=== PATIENT | male | born 1950 | race Two or more races ===

== ENCOUNTER 2025-06-21 10:15 | Inpatient (IN) | payer OTHER ==
[~2025-06-21] VITALS: Ht 177.8 cm; Wt 76.7 kg
[2025-06-21 15:13] VITALS: BP 170/88
[2025-06-29] MEDS ORDERED: METRONIDAZOLE/SODIUM CHLORIDE 500 MG/100 ML PIGGYBACK IV ONE (09:30)
[2025-06-29] MEDS ORDERED: POVIDONE-IODINE 118 ML BOTT TOP ONE (09:30)
[2025-06-29] MEDS ORDERED: LIDOCAINE HCL 2%/EPINEPHRINE 20ML VIAL IJ ONE (09:30)
[2025-06-29] MEDS ORDERED: HEMOSTATIC MATRIX 1 KIT KIT TOP ONE (09:30)
[2025-06-29] MEDS ORDERED: BUPIVACAINE HCL 30 ML VIAL IJ ONE (09:30)
[2025-06-29] MEDS ORDERED: CEFTRIAXONE SODIUM 1,000 MG VIAL IV ONE (09:30)
[2025-06-29] MEDS ORDERED: DIBUCAINE 15 GM OINT..GM. TUBE RECTAL ONE (09:30)
[2025-06-29] MEDS ORDERED: SUGAMMADEX SODIUM 200 MG/2 ML VIAL IV ONE (09:30)
[2025-06-29] MEDS ORDERED: ONDANSETRON HCL 2 MG/ML VIAL IV PRN (10:15)
[2025-06-29] MEDS ORDERED: DEXTROSE 50 % IN WATER 0.5 G/ML VIAL IV PRN (10:15)
[2025-06-29] MEDS ORDERED: OxyCODONE HCL 5 MG TABLET (ROXICODONE) PO PRN (10:15)
[2025-06-29] MEDS ORDERED: RINGERS SOLUTION,LACTATED 1,000 ML IV SCH (10:15)
[2025-06-29] MEDS ORDERED: PIPERACILLIN/TAZOBACTAM SODIUM 3.375 GM in DEXTROSE 5 % IN WATER 100 ML IV SCH (12:00)
[2025-06-29] MEDS ORDERED: MORPHINE SULFATE 4 MG/ML VIAL IV ONE (12:30)
[2025-06-29] MEDS ORDERED: ACETAMINOPHEN 500 MG GEL..CAP PO SCH (14:00)
[2025-06-29 14:29] LABS: BASO % 0.4 % (0.1-1.2); EOS # 0.05 (0.04-0.54); EOS % 0.5 % (0.7-7.0); LYMPH # 1.10 (1.18-3.74); LYMPH % 11.2 % (19.3-53.1); MEAN PLATELET VOLUME 10.90 fl (9.4-12.4); MONO # 0.60 (0.24-0.82); MONO % 6.1 % (4.7-12.5); NEUT # 8.00 (1.56-6.13); NEUT % 81.5 % (34.0-71.1); RED CELL DISTRIBUTION WIDTH 13.3 % (11.6-14.4)
[2025-06-29 15:13] LABS: BUN CREA RATIO 12.0 (7.0-25.0); CREATININE SERUM 0.82 mg/dL (0.70-1.30); GFR 91.84; GLUCOSE FASTING 138.0 mg/dL (65-100); OSMOLALITY SERUM 288.0 MOSM/KG (275-295)
[2025-06-29 16:00] VITALS: BP 113/55; O2SAT 95
[2025-06-29] MEDS ORDERED: GABAPENTIN 300 MG CAPSULE PO SCH (17:00)
[2025-06-29] MEDS ORDERED: FAMOTIDINE/PF 20 MG/2 ML VIAL IV PUSH SCH (21:00)
[2025-06-30 01:40] VITALS: BP 106/61; O2SAT 99
[2025-06-30 08:00] VITALS: BP 127/66; O2SAT 97
[2025-06-30 08:00] LABS: BASO % 0.3 % (0.1-1.2); EOS # 0.01 (0.04-0.54); EOS % 0.1 % (0.7-7.0); LYMPH # 1.27 (1.18-3.74); LYMPH % 11.2 % (19.3-53.1); MEAN PLATELET VOLUME 11.30 fl (9.4-12.4); MONO # 0.66 (0.24-0.82); MONO % 5.8 % (4.7-12.5); NEUT # 9.38 (1.56-6.13); NEUT % 82.2 % (34.0-71.1); RED CELL DISTRIBUTION WIDTH 13.2 % (11.6-14.4)
[2025-06-30 08:02] LABS: BUN CREA RATIO 11.0 (7.0-25.0); CREATININE SERUM 0.93 mg/dL (0.70-1.30); GFR 79.42; GLUCOSE FASTING 121.0 mg/dL (65-100); OSMOLALITY SERUM 283.0 MOSM/KG (275-295)
[2025-06-30] MEDS ORDERED: NOREPINEPHRINE BITARTRATE 4 MG in DEXTROSE 5 % IN WATER 250 ML IV SCH (10:00)
[2025-06-30] MEDS ORDERED: AMINOCAPROIC ACID 250 MG/ML VIAL IV STA (10:07)
[2025-06-30] MEDS ORDERED: 0.9 % SODIUM CHLORIDE 1 ML IV ONE (10:15)
[2025-06-30] MEDS ORDERED: AMINOCAPROIC ACID 250 MG/ML VIAL IV NR (11:00)
[2025-06-30 16:00] VITALS: BP 93/45; O2SAT 96
[2025-06-30] MEDS ORDERED: ENOXAPARIN SODIUM 40 MG/0.4 ML SYRINGE SUBCUTANEO SCH (17:00)
[2025-07-01 01:37] VITALS: BP 113/55; O2SAT 95
[2025-07-01 08:00] VITALS: BP 121/59; O2SAT 95
[2025-07-01] MEDS ORDERED: ENOXAPARIN SODIUM 40 MG/0.4 ML SYRINGE SUBCUTANEO SCH (09:00)
[2025-07-01 10:06] LABS: BASO % 0.2 % (0.1-1.2); EOS # 0.00 (0.04-0.54); EOS % 0.0 % (0.7-7.0); LYMPH # 0.85 (1.18-3.74); LYMPH % 9.0 % (19.3-53.1); MEAN PLATELET VOLUME 11.50 fl (9.4-12.4); MONO # 0.56 (0.24-0.82); MONO % 6.0 % (4.7-12.5); NEUT # 7.93 (1.56-6.13); NEUT % 84.3 % (34.0-71.1); RED CELL DISTRIBUTION WIDTH 14.9 % (11.6-14.4)
[2025-07-01] MEDS ORDERED: AMINOCAPROIC ACID 250 MG/ML VIAL IV SCH (12:00)
[2025-07-01 16:00] VITALS: BP 136/60; O2SAT 99
[2025-07-01] MEDS ORDERED: SOD FERRIC GLUC COMPLX/SUCROSE 62.5 MG in 0.9 % SODIUM CHLORIDE 50 ML IV SCH (17:00)
[2025-07-01 18:14] VITALS: O2SAT 96
[2025-07-01 21:44] VITALS: O2SAT 97
[2025-07-02] VITALS (9 sets, daily range): BP systolic 122–155; BP diastolic 58–85; O2SAT 90–98
[2025-07-02 11:03] LABS: BASO % 0.2 % (0.1-1.2); EOS # 0.01 (0.04-0.54); EOS % 0.1 % (0.7-7.0); LYMPH # 1.11 (1.18-3.74); LYMPH % 13.1 % (19.3-53.1); MEAN PLATELET VOLUME 11.40 fl (9.4-12.4); MONO # 0.57 (0.24-0.82); MONO % 6.7 % (4.7-12.5); NEUT # 6.73 (1.56-6.13); NEUT % 79.2 % (34.0-71.1); RED CELL DISTRIBUTION WIDTH 14.9 % (11.6-14.4)
[2025-07-03] VITALS (8 sets, daily range): BP systolic 137–181; BP diastolic 70–82; O2SAT 90–98
[2025-07-03 06:58] LABS: BASO % 0.4 % (0.1-1.2); EOS # 0.04 (0.04-0.54); EOS % 0.5 % (0.7-7.0); LYMPH # 1.73 (1.18-3.74); LYMPH % 23.3 % (19.3-53.1); MEAN PLATELET VOLUME 11.80 fl (9.4-12.4); MONO # 0.67 (0.24-0.82); MONO % 9.0 % (4.7-12.5); NEUT # 4.92 (1.56-6.13); NEUT % 66.4 % (34.0-71.1); RED CELL DISTRIBUTION WIDTH 14.7 % (11.6-14.4)
[2025-07-03] MEDS ORDERED: TYLENOL ARTHRI650 MG PO (15:07)
[2025-07-03] MEDS ORDERED: AMOX1TAB5 PO (15:07)
[2025-07-03] MEDS ORDERED: NEURONTIN300 MG PO (15:07)
== END 2025-07-03 16:30 | DRG 333 ==
LOC: SURH 06-29 05:14 → O/R 06-29 05:14 → SURH 06-29 10:15
PROVIDERS: ADMIT Surgery; ATTEND Surgery
PROC: 0DBP4ZZ Excision of Rectum, Percutaneous Endoscopic Approach (ICD-10-PCS; principal; 2025-06-29 10:15)
PROC: 30233N1 Transfusion of Nonautologous Red Blood Cells into Peripheral Vein, Percutaneous Approach (ICD-10-PCS; 2025-06-30)
PROC: 4A12X4Z Monitoring of Cardiac Electrical Activity, External Approach (ICD-10-PCS; 2025-07-01)
DX: C20 Malignant neoplasm of rectum (principal); K62.5 Hemorrhage of anus and rectum; D37.5 Neoplasm of uncertain behavior of rectum; D64.9 Anemia, unspecified

== ENCOUNTER 2025-07-04 05:01 | Inpatient (IN) | payer OTHER ==
[~2025-07-04] VITALS: Ht 152.4 cm; Wt 76.7 kg
[~2025-07-04 05:01] MED LIST: AMOX1TAB5 PO; NEURONTIN300 MG PO; TYLENOL ARTHRI650 MG PO
[2025-07-04] MEDS ORDERED: RINGERS SOLUTION,LACTATED 1,000 ML IV ONE (05:30)
[2025-07-04] MEDS ORDERED: PIPERACILLIN/TAZOBACTAM SODIUM 3.375 GM VIAL IV STA (05:39)
[2025-07-04 06:49] LABS: BASO % 0.2 % (0.1-1.2); EOS # 0.05 (0.04-0.54); EOS % 0.5 % (0.7-7.0); LYMPH # 1.51 (1.18-3.74); LYMPH % 13.8 % (19.3-53.1); MEAN PLATELET VOLUME 11.90 fl (9.4-12.4); MONO # 0.83 (0.24-0.82); MONO % 7.6 % (4.7-12.5); NEUT # 8.43 (1.56-6.13); NEUT % 76.7 % (34.0-71.1); RED CELL DISTRIBUTION WIDTH 14.3 % (11.6-14.4)
[2025-07-04 07:13] LABS: INR 1.05
[2025-07-04] MEDS ORDERED: MORPHINE SULFATE 4 MG/ML VIAL IV PRN (07:15)
[2025-07-04 07:20] LABS: ALT/SGPT 18.0 U/L (12-78); AST/SGOT 21.0 U/L (15-37); BILIRUBIN TOTAL 0.6 mg/dL (0.3-1.2); BUN CREA RATIO 8.0 (7.0-25.0); CREATININE SERUM 0.83 mg/dL (0.70-1.30); GFR 90.57; GLOBULINA 3.0 G/DL (2.4-3.5); GLUCOSE FASTING 190.0 mg/dL (65-100); OSMOLALITY SERUM 290.0 MOSM/KG (275-295)
[2025-07-04] MEDS ORDERED: POTASSIUM CHLORIDE IN WATER 40 MEQ/100 ML PIGGYBAG IV ONE (07:45)
[2025-07-04 08:04] VITALS: BP 136/55; O2SAT 97
[2025-07-04 08:27] LABS: BUN CREA RATIO 10.0 (7.0-25.0); CREATININE SERUM 0.7 mg/dL (0.70-1.30); GFR 110.24; GLUCOSE FASTING 145.0 mg/dL (65-100); OSMOLALITY SERUM 291.0 MOSM/KG (275-295)
[2025-07-04] MEDS ORDERED: FAMOTIDINE/PF 20 MG/2 ML VIAL IV SCH (09:00)
[2025-07-04 09:55] LABS: COVID-19 AG NEGATIVE (NEGATIVE)
[2025-07-04 10:13] LABS: URINE APPEARANCE Clear; URINE BILIRRUBIN Negative (NEGATIVE); URINE BLOOD Moderate; URINE COLOR Yellow; URINE GLUCOSE Negative (NEGATIVE); URINE LEUKOCYTE Trace; URINE NITRATE Negative; URINE PROTEIN Negative (NEGATIVE); URINE UROBILINOGEN 0.2 E.U./dl
[2025-07-04 10:17] LABS: URINE BACTERIA 27.5 uL (0.0-1933); URINE CAST 4.54 uL (0.0-1.40); URINE EPITHELIAL CELLS 14.9 uL (0.0-38.8); URINE RBC 63.2 uL (0.0-20.8); URINE WBC 63.9 uL (0.0-23.2)
[2025-07-04 10:53] LABS: TYPE CELLS SQUAMOUS; URINE KETONE 40 (NEGATIVE); URINE MUCUS SCANT
[2025-07-04 11:17] VITALS: BP 143/69; O2SAT 100
[2025-07-04 13:50] VITALS: BP 167/74; O2SAT 97
[2025-07-04 16:00] VITALS: BP 170/80; O2SAT 95
[2025-07-04 19:25] LABS: BASO % 0.2 % (0.1-1.2); EOS # 0.02 (0.04-0.54); EOS % 0.2 % (0.7-7.0); LYMPH # 1.58 (1.18-3.74); LYMPH % 19.5 % (19.3-53.1); MEAN PLATELET VOLUME 11.70 fl (9.4-12.4); MONO # 0.79 (0.24-0.82); MONO % 9.8 % (4.7-12.5); NEUT # 5.60 (1.56-6.13); NEUT % 69.3 % (34.0-71.1); RED CELL DISTRIBUTION WIDTH 14.7 % (11.6-14.4)
[2025-07-04] MEDS ORDERED: ONDANSETRON HCL 2 MG/ML VIAL IV PRN (19:30)
[2025-07-04] MEDS ORDERED: RINGERS SOLUTION,LACTATED 1,000 ML IV SCH (19:30)
[2025-07-04] MEDS ORDERED: MORPHINE SULFATE 4 MG/ML CARTRIDGE IV PRN ×2 (19:30)
[2025-07-04] MEDS ORDERED: DEXTROSE 50 % IN WATER 0.5 G/ML VIAL IV PRN (19:30)
[2025-07-04] MEDS ORDERED: SIMETHICONE 125 MG CAPSULE PO SCH (21:00)
[2025-07-04] MEDS ORDERED: FAMOTIDINE/PF 20 MG/2 ML VIAL IV PUSH SCH (21:00)
[2025-07-04] MEDS ORDERED: METRONIDAZOLE/SODIUM CHLORIDE 500 MG/100 ML PIGGYBACK IV SCH (21:00)
[2025-07-04] MEDS ORDERED: GABAPENTIN 300 MG CAPSULE PO SCH (21:00)
[2025-07-04] MEDS ORDERED: CIPROFLOXACIN IN 5 % DEXTROSE 400 MG/200 ML PIGGYBAG IV SCH (21:00)
[2025-07-04] MEDS ORDERED: POVIDONE-IODINE 118 ML BOTT TOP ONE (22:30)
[2025-07-04] MEDS ORDERED: METRONIDAZOLE/SODIUM CHLORIDE 500 MG/100 ML PIGGYBACK IV ONE (22:30)
[2025-07-05 06:10] LABS: BASO % 0.3 % (0.1-1.2); EOS # 0.14 (0.04-0.54); EOS % 1.6 % (0.7-7.0); LYMPH # 1.68 (1.18-3.74); LYMPH % 19.0 % (19.3-53.1); MEAN PLATELET VOLUME 11.30 fl (9.4-12.4); MONO # 1.00 (0.24-0.82); MONO % 11.3 % (4.7-12.5); NEUT # 5.89 (1.56-6.13); NEUT % 66.4 % (34.0-71.1); RED CELL DISTRIBUTION WIDTH 14.9 % (11.6-14.4)
[2025-07-05 06:59] LABS: BUN CREA RATIO 7.0 (7.0-25.0); CREATININE SERUM 0.57 mg/dL (0.70-1.30); GFR 139.73; GLUCOSE FASTING 87.0 mg/dL (65-100); OSMOLALITY SERUM 285.0 MOSM/KG (275-295)
[2025-07-05 08:00] VITALS: BP 156/72; O2SAT 95
[2025-07-05] MEDS ORDERED: LACTOBACILLUS ACIDOPHILUS 1 CAP CAP PO SCH (09:00)
[2025-07-05] MEDS ORDERED: TAMSULOSIN HCL 0.4 MG CAP PO NR (11:00)
[2025-07-05 16:00] VITALS: BP 150/62; O2SAT 97
[2025-07-05] MEDS ORDERED: SUGAMMADEX SODIUM 200 MG/2 ML VIAL IV ONE (21:15)
[2025-07-06 01:20] VITALS: BP 148/64; O2SAT 97
[2025-07-06 06:45] LABS: BASO % 0.5 % (0.1-1.2); EOS # 0.32 (0.04-0.54); EOS % 4.3 % (0.7-7.0); LYMPH # 1.96 (1.18-3.74); LYMPH % 26.6 % (19.3-53.1); MEAN PLATELET VOLUME 10.90 fl (9.4-12.4); MONO # 0.86 (0.24-0.82); MONO % 11.7 % (4.7-12.5); NEUT # 4.07 (1.56-6.13); NEUT % 55.3 % (34.0-71.1); RED CELL DISTRIBUTION WIDTH 15.2 % (11.6-14.4)
[2025-07-06 07:02] LABS: BUN CREA RATIO 6.0 (7.0-25.0); CREATININE SERUM 0.67 mg/dL (0.70-1.30); GFR 115.95; GLUCOSE FASTING 95.0 mg/dL (65-100); OSMOLALITY SERUM 289.0 MOSM/KG (275-295)
[2025-07-06 08:00] VITALS: BP 168/76; O2SAT 97
[2025-07-06] MEDS ORDERED: TAMSULOSIN HCL 0.4 MG CAP PO SCH (09:00)
[2025-07-06] MEDS ORDERED: SOD FERRIC GLUC COMPLX/SUCROSE 62.5 MG in 0.9 % SODIUM CHLORIDE 50 ML IV SCH (12:24)
[2025-07-06 17:25] VITALS: BP 130/65; O2SAT 94
[2025-07-07 01:48] VITALS: BP 113/58; O2SAT 96
[2025-07-07 07:20] LABS: BASO % 0.3 % (0.1-1.2); EOS # 0.11 (0.04-0.54); EOS % 1.2 % (0.7-7.0); LYMPH # 1.78 (1.18-3.74); LYMPH % 19.0 % (19.3-53.1); MEAN PLATELET VOLUME 11.00 fl (9.4-12.4); MONO # 0.84 (0.24-0.82); MONO % 9.0 % (4.7-12.5); NEUT # 6.50 (1.56-6.13); NEUT % 69.3 % (34.0-71.1); RED CELL DISTRIBUTION WIDTH 15.6 % (11.6-14.4)
[2025-07-07] MEDS ORDERED: AMINOCAPROIC ACID 250 MG/ML VIAL IV STA ×2 (07:45→10:05)
[2025-07-07 07:56] LABS: BUN CREA RATIO 7.0 (7.0-25.0); CREATININE SERUM 0.68 mg/dL (0.70-1.30); GFR 113.99; GLUCOSE FASTING 104.0 mg/dL (65-100); OSMOLALITY SERUM 288.0 MOSM/KG (275-295)
[2025-07-07 08:00] VITALS: BP 145/71; O2SAT 94
[2025-07-07] MEDS ORDERED: GABAPENTIN 300 MG CAPSULE PO PRN (14:05)
[2025-07-07 16:00] VITALS: BP 140/71; O2SAT 97
[2025-07-07] MEDS ORDERED: AMINOCAPROIC ACID 20 MG/ML ML IV SCH (17:00)
[2025-07-07 20:21] LABS: BASO % 0.4 % (0.1-1.2); EOS # 0.16 (0.04-0.54); EOS % 2.1 % (0.7-7.0); LYMPH # 1.74 (1.18-3.74); LYMPH % 22.8 % (19.3-53.1); MEAN PLATELET VOLUME 11.10 fl (9.4-12.4); MONO # 0.68 (0.24-0.82); MONO % 8.9 % (4.7-12.5); NEUT # 4.97 (1.56-6.13); NEUT % 65.1 % (34.0-71.1); RED CELL DISTRIBUTION WIDTH 16.8 % (11.6-14.4)
[2025-07-07 21:10] LABS: INR 1.06
[2025-07-08 01:45] VITALS: BP 141/69; O2SAT 97
[2025-07-08 08:00] VITALS: BP 144/85; O2SAT 96
[2025-07-08 16:00] VITALS: BP 160/81; O2SAT 98
[2025-07-09 01:10] VITALS: BP 146/79; O2SAT 96
[2025-07-09 08:20] VITALS: BP 151/63; O2SAT 97
[2025-07-09 15:24] LABS: BASO % 0.2 % (0.1-1.2); EOS # 0.05 (0.04-0.54); EOS % 0.6 % (0.7-7.0); LYMPH # 1.41 (1.18-3.74); LYMPH % 15.7 % (19.3-53.1); MEAN PLATELET VOLUME 10.90 fl (9.4-12.4); MONO # 0.68 (0.24-0.82); MONO % 7.6 % (4.7-12.5); NEUT # 6.76 (1.56-6.13); NEUT % 75.2 % (34.0-71.1); RED CELL DISTRIBUTION WIDTH 17.0 % (11.6-14.4)
[2025-07-09 16:30] VITALS: BP 108/75; BP 155/78; O2SAT 100; O2SAT 98
[2025-07-09 16:33] LABS: D DIMER 1.06 MG/L; INR 1.03
[2025-07-09 16:47] LABS: ALT/SGPT 21.0 U/L (12-78); AST/SGOT 20.0 U/L (15-37); BILIRUBIN TOTAL 0.3 mg/dL (0.3-1.2); BUN CREA RATIO 4.0 (7.0-25.0); CREATININE SERUM 0.76 mg/dL (0.70-1.30); GFR 100.26; GLOBULINA 2.6 G/DL (2.4-3.5); GLUCOSE FASTING 166.0 mg/dL (65-100); OSMOLALITY SERUM 285.0 MOSM/KG (275-295)
[2025-07-09] MEDS ORDERED: AMINOCAPROIC ACID 250 MG/ML VIAL IV STA (20:10)
[2025-07-09] MEDS ORDERED: POTASSIUM CHLORIDE IN WATER 100 ML IV ONE (20:30)
[2025-07-09] MEDS ORDERED: 0.9 % SODIUM CHLORIDE 1,000 ML IV SCH (20:45)
[2025-07-09 22:41] VITALS: BP 105/75; O2SAT 98
[2025-07-09 23:10] VITALS: BP 97/71; O2SAT 99
[2025-07-10] MEDS ORDERED: GABAPENTIN 300 MG CAPSULE PO STA (00:34)
[2025-07-10] MEDS ORDERED: ACETAMINOPHEN 500 MG GEL..CAP PO STA (00:35)
[2025-07-10] MEDS ORDERED: AMINOCAPROIC ACID 250 MG/ML VIAL IV SCH (02:00)
[2025-07-10 03:58] VITALS: BP 120/75; O2SAT 99
[2025-07-10 07:37] VITALS: BP 116/70; O2SAT 97
[2025-07-10] MEDS ORDERED: ACETAMINOPHEN 500 MG GEL..CAP PO SCH (09:00)
[2025-07-10] MEDS ORDERED: GABAPENTIN 300 MG CAPSULE PO SCH (09:00)
[2025-07-10 10:47] LABS: FOLIC ACID > 20.00 ng/ml (4.78-20)
[2025-07-10 12:00] VITALS: BP 122/68; O2SAT 100
[2025-07-10 15:51] VITALS: BP 137/85; O2SAT 100
[2025-07-10 16:53] LABS: BASO % 0.4 % (0.1-1.2); EOS # 0.08 (0.04-0.54); EOS % 0.7 % (0.7-7.0); LYMPH # 1.07 (1.18-3.74); LYMPH % 9.7 % (19.3-53.1); MEAN PLATELET VOLUME 10.40 fl (9.4-12.4); MONO # 0.67 (0.24-0.82); MONO % 6.1 % (4.7-12.5); NEUT # 9.09 (1.56-6.13); NEUT % 82.6 % (34.0-71.1); RED CELL DISTRIBUTION WIDTH 17.4 % (11.6-14.4)
[2025-07-10] MEDS ORDERED: AA 5 %/CALCIUM/LYTES/DEXT 20 % 2,000 ML CENTRAL SCH (17:00)
[2025-07-10 17:40] LABS: BUN CREA RATIO 10.0 (7.0-25.0); CHOL HDL RATIO 3.4 (0-5.0); CREATININE SERUM 0.72 mg/dL (0.70-1.30); GFR 106.71; GLUCOSE FASTING 97.0 mg/dL (65-100); HDL 31.0 mg/dl (40-60); LDL 61.0 mg/dl (0-130); OSMOLALITY SERUM 285.0 MOSM/KG (275-295); VLDL 14.0 (0-39)
[2025-07-10] MEDS ORDERED: VISTASEAL DUAL APPICATOR 1 EACH APPL TOP ONE (18:24)
[2025-07-10] MEDS ORDERED: THROMBIN,HU/FIBRINOGEN/CALCIUM 10 ML SYRINGE TOP ONE (18:25)
[2025-07-10] MEDS ORDERED: HEMOSTATIC MATRIX 1 KIT KIT TOP ONE (19:03)
[2025-07-10] MEDS ORDERED: PHYTONADIONE 10 MG/ML AMPUL ONE (19:21)
[2025-07-10] MEDS ORDERED: PHYTONADIONE 10 MG/ML AMPUL IV STA (19:22)
[2025-07-10 20:30] VITALS: BP 134/79; O2SAT 100
[2025-07-10] MEDS ORDERED: PANTOPRAZOLE SODIUM 40 MG/VIAL VIAL IV SCH (21:00)
[2025-07-10] MEDS ORDERED: FAT EMULSIONS 250 ML IV SCH (21:00)
[2025-07-11 00:15] VITALS: BP 119/63; O2SAT 100
[2025-07-11 07:00] VITALS: BP 133/73; O2SAT 96
[2025-07-11] MEDS ORDERED: PIPERACILLIN/TAZOBACTAM SODIUM 3.375 GM in DEXTROSE 5 % IN WATER 100 ML IV SCH ×3 (08:00→14:00)
[2025-07-11] MEDS ORDERED: PIPERACILLIN/TAZOBACTAM SODIUM 3.375 GM in DEXTROSE 5 % IN WATER 100 ML IV NR (09:25)
[2025-07-11 12:00] VITALS: BP 168/88; BP 169/88; O2SAT 97; O2SAT 98
[2025-07-11 15:49] VITALS: BP 171/79; O2SAT 97
[2025-07-11 20:00] VITALS: BP 171/79; O2SAT 97
[2025-07-11 23:41] VITALS: BP 162/73; O2SAT 97
[2025-07-12 04:00] VITALS: BP 163/85; O2SAT 95
[2025-07-12 07:02] LABS: BASO % 0.3 % (0.1-1.2); EOS # 0.29 (0.04-0.54); EOS % 4.3 % (0.7-7.0); LYMPH # 0.98 (1.18-3.74); LYMPH % 14.6 % (19.3-53.1); MEAN PLATELET VOLUME 10.90 fl (9.4-12.4); MONO # 0.60 (0.24-0.82); MONO % 9.0 % (4.7-12.5); NEUT # 4.77 (1.56-6.13); NEUT % 71.2 % (34.0-71.1); RED CELL DISTRIBUTION WIDTH 17.4 % (11.6-14.4)
[2025-07-12 07:22] VITALS: BP 160/91; O2SAT 97
[2025-07-12 07:33] LABS: ALT/SGPT 17.0 U/L (12-78); AST/SGOT 15.0 U/L (15-37); BILIRUBIN TOTAL 0.23 mg/dL (0.3-1.2); BUN CREA RATIO 12.0 (7.0-25.0); CREATININE SERUM 0.74 mg/dL (0.70-1.30); GFR 103.39; GLOBULINA 3.0 G/DL (2.4-3.5); GLUCOSE FASTING 102.0 mg/dL (65-100); OSMOLALITY SERUM 288.0 MOSM/KG (275-295)
[2025-07-12 07:47] LABS: EOSINOPHIL MAN 3.0 %; LYMPHOCYTE MAN 16.0 %; MONOCYTE MAN 2.0 %; NEUTROPHILS MAN 79.0 %
[2025-07-12 12:00] VITALS: BP 162/83; O2SAT 98
[2025-07-12 15:52] VITALS: BP 175/75; O2SAT 99
[2025-07-12 20:00] VITALS: BP 166/83; O2SAT 97
[2025-07-12 23:49] VITALS: BP 173/86; O2SAT 97
[2025-07-13] VITALS (18 sets, daily range): BP systolic 71–158; BP diastolic 34–98; O2SAT 80–100
[2025-07-13 01:24] LABS: BASO % 0.3 % (0.1-1.2); EOS # 0.31 (0.04-0.54); EOS % 4.4 % (0.7-7.0); LYMPH # 1.25 (1.18-3.74); LYMPH % 17.8 % (19.3-53.1); MEAN PLATELET VOLUME 10.50 fl (9.4-12.4); MONO # 0.69 (0.24-0.82); MONO % 9.8 % (4.7-12.5); NEUT # 4.70 (1.56-6.13); NEUT % 67.1 % (34.0-71.1); RED CELL DISTRIBUTION WIDTH 16.9 % (11.6-14.4)
[2025-07-13] MEDS ORDERED: AMINOCAPROIC ACID 250 MG/ML VIAL IV STA (01:54)
[2025-07-13] MEDS ORDERED: NOREPINEPHRINE BITARTRATE 8 MG in DEXTROSE 5 % IN WATER 250 ML IV SCH (03:30)
[2025-07-13] MEDS ORDERED: THROMBIN,HU/FIBRINOGEN/CALCIUM 10 ML SYRINGE TOP ONE (06:00)
[2025-07-13] MEDS ORDERED: POVIDONE-IODINE 118 ML BOTT TOP ONE (06:00)
[2025-07-13 09:08] LABS: FACTOR VIII ACTIVITY 35 % (56-140); VON WILLERBRAND ACTIVITY > 300 % (50-200); VON WILLERBRAND ANTIGEN 352 % (50-200)
[2025-07-13] MEDS ORDERED: MORPHINE SULFATE 4 MG/ML CARTRIDGE IV PRN (11:45)
[2025-07-13 16:25] LABS: BASO % 0.4 % (0.1-1.2); EOS # 0.17 (0.04-0.54); EOS % 2.1 % (0.7-7.0); LYMPH # 1.18 (1.18-3.74); LYMPH % 14.7 % (19.3-53.1); MEAN PLATELET VOLUME 10.60 fl (9.4-12.4); MONO # 0.77 (0.24-0.82); MONO % 9.6 % (4.7-12.5); NEUT # 5.84 (1.56-6.13); NEUT % 72.5 % (34.0-71.1); RED CELL DISTRIBUTION WIDTH 16.5 % (11.6-14.4)
[2025-07-13 17:00] LABS: INR 1.07
[2025-07-14 03:58] VITALS: BP 157/80; O2SAT 96
[2025-07-14 07:13] VITALS: BP 157/79; O2SAT 100
[2025-07-14 12:00] VITALS: BP 169/8; O2SAT 100
[2025-07-14 15:38] VITALS: BP 154/65; O2SAT 100
[2025-07-14] MEDS ORDERED: [UNRECOGNIZED DRUG - OTHER] IV NR (17:00)
[2025-07-14 18:25] LABS: BASO % 0.4 % (0.1-1.2); EOS # 0.33 (0.04-0.54); EOS % 4.9 % (0.7-7.0); LYMPH # 0.94 (1.18-3.74); LYMPH % 14.0 % (19.3-53.1); MEAN PLATELET VOLUME 10.80 fl (9.4-12.4); MONO # 0.71 (0.24-0.82); MONO % 10.6 % (4.7-12.5); NEUT # 4.67 (1.56-6.13); NEUT % 69.7 % (34.0-71.1); RED CELL DISTRIBUTION WIDTH 15.7 % (11.6-14.4)
[2025-07-14 20:51] VITALS: BP 154/75; O2SAT 100
[2025-07-14 23:37] VITALS: BP 142/73; O2SAT 97
[2025-07-15 04:00] VITALS: BP 135/56; O2SAT 100
[2025-07-15 07:19] VITALS: BP 158/77; O2SAT 96
[2025-07-15] MEDS ORDERED: POVIDONE-IODINE 118 ML BOTT TOP ONE (09:03)
[2025-07-15] MEDS ORDERED: HEMOSTATIC MATRIX 1 KIT KIT TOP ONE (09:03)
[2025-07-15] MEDS ORDERED: [UNRECOGNIZED DRUG - OTHER] IV NR ×2 (09:15→16:00)
[2025-07-15] MEDS ORDERED: ANTIHEMOPHILIC FACTOR IV NR ×2 (09:15→16:00)
[2025-07-15] MEDS ORDERED: DIATRIZOATE MEGLUMINE, SODIUM 30 ML BOTTLE PO NR (11:15)
[2025-07-15 11:57] VITALS: BP 169/94; O2SAT 100
[2025-07-15 15:29] VITALS: BP 149/92; O2SAT 99
[2025-07-15 20:42] VITALS: BP 160/73; O2SAT 100
[2025-07-15 23:00] VITALS: BP 142/77; O2SAT 100
[2025-07-16 03:22] LABS: BASO % 0.5 % (0.1-1.2); EOS # 0.40 (0.04-0.54); EOS % 7.2 % (0.7-7.0); LYMPH # 1.13 (1.18-3.74); LYMPH % 20.3 % (19.3-53.1); MEAN PLATELET VOLUME 10.90 fl (9.4-12.4); MONO # 0.75 (0.24-0.82); MONO % 13.4 % (4.7-12.5); NEUT # 3.22 (1.56-6.13); NEUT % 57.7 % (34.0-71.1); RED CELL DISTRIBUTION WIDTH 15.1 % (11.6-14.4)
[2025-07-16 04:00] LABS: INR 1.06
[2025-07-16 04:07] VITALS: BP 155/69; O2SAT 97
[2025-07-16 07:07] VITALS: BP 140/72; O2SAT 99
[2025-07-16 07:49] LABS: ALT/SGPT 32 U/L (12-78); AST/SGOT 33 U/L (15-37); BILIRUBIN TOTAL 0.30 mg/dL (0.3-1.2); BILIRUBIN,CONJUGATED < 0.10 mg/dL (0.0-0.2); BUN CREA RATIO 22 (7.0-25.0); CHOL HDL RATIO 3.5 (0-5.0); CREATININE SERUM 0.63 mg/dL (0.70-1.30); GFR 124.49; GLUCOSE FASTING 163 mg/dL (65-100); HDL 32 mg/dl (40-60); LDL 64 mg/dl (0-130); OSMOLALITY SERUM 285 MOSM/KG (275-295); VLDL 16 (0-39)
[2025-07-16 08:25] LABS: UREA CLEARANCE 52.4 ML/MIN
[2025-07-16] MEDS ORDERED: [UNRECOGNIZED DRUG - OTHER] IV NR ×2 (08:25→09:50)
[2025-07-16 12:00] VITALS: BP 106/61; O2SAT 100
[2025-07-16 15:19] VITALS: BP 96/57; O2SAT 100
[2025-07-16 15:22] LABS: BASO % 0.7 % (0.1-1.2); EOS # 0.13 (0.04-0.54); EOS % 1.9 % (0.7-7.0); LYMPH # 0.87 (1.18-3.74); LYMPH % 12.4 % (19.3-53.1); MEAN PLATELET VOLUME 10.80 fl (9.4-12.4); MONO # 0.66 (0.24-0.82); MONO % 9.4 % (4.7-12.5); NEUT # 5.19 (1.56-6.13); NEUT % 73.9 % (34.0-71.1); RED CELL DISTRIBUTION WIDTH 15.3 % (11.6-14.4)
[2025-07-16] MEDS ORDERED: [UNRECOGNIZED DRUG - OTHER] IV NR (20:00)
[2025-07-16] MEDS ORDERED: [UNRECOGNIZED DRUG - OTHER] IV NR (20:00)
[2025-07-16 21:15] VITALS: BP 110/50; O2SAT 99
[2025-07-16 23:29] VITALS: BP 107/59; O2SAT 99
[2025-07-17 01:09] LABS: BASO % 0.5 % (0.1-1.2); EOS # 0.33 (0.04-0.54); EOS % 5.6 % (0.7-7.0); LYMPH # 1.29 (1.18-3.74); LYMPH % 21.9 % (19.3-53.1); MEAN PLATELET VOLUME 11.00 fl (9.4-12.4); MONO # 0.82 (0.24-0.82); NEUT # 3.33 (1.56-6.13); NEUT % 56.4 % (34.0-71.1); RED CELL DISTRIBUTION WIDTH 15.1 % (11.6-14.4)
[2025-07-17 01:14] LABS: MONO % 13.9 % (4.7-12.5)
[2025-07-17 04:00] VITALS: BP 116/53; O2SAT 98
[2025-07-17 07:32] VITALS: BP 114/67; O2SAT 99
[2025-07-17] MEDS ORDERED: [UNRECOGNIZED DRUG - OTHER] IV NR (08:00)
[2025-07-17] MEDS ORDERED: [UNRECOGNIZED DRUG - OTHER] IV NR (08:00)
[2025-07-17] MEDS ORDERED: AMINOCAPROIC ACID 250 MG/ML VIAL IV NR (09:00)
[2025-07-17] MEDS ORDERED: AMINOCAPROIC ACID 20 MG/ML ML IV SCH (10:00)
[2025-07-17 12:00] VITALS: BP 120/60; O2SAT 100
[2025-07-17 14:22] LABS: BASO % 0.7 % (0.1-1.2); EOS # 0.41 (0.04-0.54); EOS % 7.2 % (0.7-7.0); LYMPH # 1.17 (1.18-3.74); LYMPH % 20.7 % (19.3-53.1); MEAN PLATELET VOLUME 10.90 fl (9.4-12.4); MONO # 0.71 (0.24-0.82); NEUT # 3.26 (1.56-6.13); NEUT % 57.7 % (34.0-71.1); RED CELL DISTRIBUTION WIDTH 14.9 % (11.6-14.4)
[2025-07-17 15:43] LABS: MONO % 12.5 % (4.7-12.5)
[2025-07-17 16:00] VITALS: BP 108/59; O2SAT 100
[2025-07-17 16:24] LABS: BAND MAN 4.0 %; EOSINOPHIL MAN 5.0 %; LYMPHOCYTE MAN 19.0 %; METAMYELOCYTE 5.0 %; MONOCYTE MAN 8.0 %; MYELOCYTE 4.0 %; NEUTROPHILS MAN 55.0 %
[2025-07-17] MEDS ORDERED: FUERA DE FORMULARIO 1 U FF IV SCH ×3 (18:00→23:45)
[2025-07-17 20:00] VITALS: BP 119/61; O2SAT 99
[2025-07-17 20:49] LABS: BASO % 0.4 % (0.1-1.2); EOS # 0.39 (0.04-0.54); EOS % 5.5 % (0.7-7.0); LYMPH # 1.04 (1.18-3.74); LYMPH % 14.6 % (19.3-53.1); MEAN PLATELET VOLUME 11.00 fl (9.4-12.4); MONO # 0.85 (0.24-0.82); MONO % 12.0 % (4.7-12.5); NEUT # 4.72 (1.56-6.13); NEUT % 66.4 % (34.0-71.1); RED CELL DISTRIBUTION WIDTH 14.8 % (11.6-14.4)
[2025-07-17] MEDS ORDERED: FUERA DE FORMULARIO 1 U FF IV NR (21:30)
[2025-07-17 23:22] VITALS: BP 118/66; O2SAT 100
[2025-07-18 04:17] VITALS: BP 106/72; O2SAT 100
[2025-07-18 07:06] VITALS: BP 105/58; O2SAT 100
[2025-07-18] MEDS ORDERED: FUERA DE FORMULARIO 1 U FF IV NR ×2 (08:00→14:00)
[2025-07-18 12:00] VITALS: BP 140/63; O2SAT 100
[2025-07-18] MEDS ORDERED: AMINOCAPROIC ACID 20 MG/ML ML IV SCH (12:00)
[2025-07-18 12:45] LABS: BASO % 0.6 % (0.1-1.2); EOS # 0.55 (0.04-0.54); EOS % 6.7 % (0.7-7.0); LYMPH # 1.08 (1.18-3.74); LYMPH % 13.2 % (19.3-53.1); MEAN PLATELET VOLUME 11.00 fl (9.4-12.4); MONO # 0.92 (0.24-0.82); MONO % 11.3 % (4.7-12.5); NEUT # 5.45 (1.56-6.13); NEUT % 66.9 % (34.0-71.1); RED CELL DISTRIBUTION WIDTH 14.6 % (11.6-14.4)
[2025-07-18] MEDS ORDERED: NYSTATIN 15 GM TOP SCH (13:00)
[2025-07-18] MEDS ORDERED: ZINC OXIDE 30 GM TOP SCH (13:00)
[2025-07-18] MEDS ORDERED: SILVER SULFADIAZINE TOP SCH (13:00)
[2025-07-18 13:32] LABS: ALT/SGPT 45.0 U/L (12-78); AST/SGOT 37.0 U/L (15-37); BILIRUBIN TOTAL 0.55 mg/dL (0.3-1.2); BUN CREA RATIO 17.0 (7.0-25.0); CREATININE SERUM 0.78 mg/dL (0.70-1.30); GFR 97.3; GLOBULINA 3.4 G/DL (2.4-3.5); GLUCOSE FASTING 125.0 mg/dL (65-100); OSMOLALITY SERUM 283.0 MOSM/KG (275-295)
[2025-07-18 15:03] VITALS: BP 114/66; O2SAT 100
[2025-07-18] MEDS ORDERED: PANTOPRAZOLE SODIUM 40 MG/VIAL VIAL IV NR (16:00)
[2025-07-18 20:00] VITALS: BP 135/71; O2SAT 100
[2025-07-18 23:09] VITALS: BP 141/62; O2SAT 98
[2025-07-19 04:00] VITALS: BP 115/60; O2SAT 99
[2025-07-19 07:08] VITALS: BP 129/65; O2SAT 99
[2025-07-19] MEDS ORDERED: PANTOPRAZOLE SODIUM 40 MG/VIAL VIAL IV SCH (09:00)
[2025-07-19 10:31] LABS: BASO % 0.6 % (0.1-1.2); EOS # 0.67 (0.04-0.54); EOS % 8.6 % (0.7-7.0); LYMPH # 1.00 (1.18-3.74); LYMPH % 12.8 % (19.3-53.1); MEAN PLATELET VOLUME 11.20 fl (9.4-12.4); MONO # 0.98 (0.24-0.82); MONO % 12.6 % (4.7-12.5); NEUT # 5.00 (1.56-6.13); NEUT % 64.2 % (34.0-71.1); RED CELL DISTRIBUTION WIDTH 14.4 % (11.6-14.4)
[2025-07-19 11:12] LABS: FACTOR VIII ACTIVITY 100 % (56-140); a PTT 30.4 sec (22.9-30.2)
[2025-07-19 12:00] VITALS: BP 134/65; O2SAT 100
[2025-07-19] MEDS ORDERED: FUERA DE FORMULARIO 1 U FF IV SCH (13:30)
[2025-07-19 15:58] VITALS: BP 128/75; O2SAT 100
[2025-07-19 19:55] LABS: BASO % 0.5 % (0.1-1.2); EOS # 0.41 (0.04-0.54); EOS % 5.2 % (0.7-7.0); LYMPH # 1.06 (1.18-3.74); LYMPH % 13.4 % (19.3-53.1); MEAN PLATELET VOLUME 11.20 fl (9.4-12.4); MONO # 0.80 (0.24-0.82); MONO % 10.1 % (4.7-12.5); NEUT # 5.54 (1.56-6.13); NEUT % 69.7 % (34.0-71.1); RED CELL DISTRIBUTION WIDTH 14.7 % (11.6-14.4)
[2025-07-19 19:57] VITALS: BP 135/64; O2SAT 97
[2025-07-19] MEDS ORDERED: DIBUCAINE 30 GM TUBE RECTAL SCH (22:40)
[2025-07-19 23:16] VITALS: BP 121/69; O2SAT 100
[2025-07-20 01:42] LABS: BASO % 0.5 % (0.1-1.2); EOS # 0.28 (0.04-0.54); EOS % 2.6 % (0.7-7.0); LYMPH # 1.00 (1.18-3.74); LYMPH % 9.1 % (19.3-53.1); MEAN PLATELET VOLUME 11.60 fl (9.4-12.4); MONO # 0.97 (0.24-0.82); MONO % 8.8 % (4.7-12.5); NEUT # 8.50 (1.56-6.13); NEUT % 77.5 % (34.0-71.1); RED CELL DISTRIBUTION WIDTH 14.9 % (11.6-14.4)
[2025-07-20 04:00] VITALS: BP 139/68; O2SAT 100
[2025-07-20 07:08] VITALS: BP 128/72; O2SAT 99
[2025-07-20] MEDS ORDERED: FUERA DE FORMULARIO 1 U FF IV ONE (08:45)
[2025-07-20 12:00] VITALS: BP 140/73; O2SAT 96
[2025-07-20 14:56] LABS: BASO % 0.7 % (0.1-1.2); EOS # 0.48 (0.04-0.54); EOS % 5.1 % (0.7-7.0); LYMPH # 1.31 (1.18-3.74); LYMPH % 14.0 % (19.3-53.1); MEAN PLATELET VOLUME 11.40 fl (9.4-12.4); MONO # 1.09 (0.24-0.82); MONO % 11.7 % (4.7-12.5); NEUT # 6.22 (1.56-6.13); NEUT % 66.7 % (34.0-71.1); RED CELL DISTRIBUTION WIDTH 14.6 % (11.6-14.4)
[2025-07-20] MEDS ORDERED: MIDAZOLAM HCL 2 MG/2 ML VIAL IV ONE (15:00)
[2025-07-20 16:00] VITALS: BP 129/78; O2SAT 100
[2025-07-20] MEDS ORDERED: FUERA DE FORMULARIO 1 U FF IV SCH (17:00)
[2025-07-20 20:00] VITALS: BP 137/74; O2SAT 100
[2025-07-20 23:21] VITALS: BP 127/67; O2SAT 100
[2025-07-21] VITALS (7 sets, daily range): BP systolic 106–154; BP diastolic 54–99; O2SAT 100
[2025-07-21 08:07] LABS: BASO % 0.8 % (0.1-1.2); EOS # 0.87 (0.04-0.54); EOS % 11.2 % (0.7-7.0); LYMPH # 1.38 (1.18-3.74); LYMPH % 17.7 % (19.3-53.1); MEAN PLATELET VOLUME 11.90 fl (9.4-12.4); MONO # 0.83 (0.24-0.82); MONO % 10.7 % (4.7-12.5); NEUT # 4.53 (1.56-6.13); NEUT % 58.1 % (34.0-71.1); RED CELL DISTRIBUTION WIDTH 14.7 % (11.6-14.4)
[2025-07-22 04:32] VITALS: BP 108/62; O2SAT 100
[2025-07-22 07:49] LABS: BASO % 0.8 % (0.1-1.2); EOS # 0.80 (0.04-0.54); EOS % 12.2 % (0.7-7.0); LYMPH # 1.29 (1.18-3.74); LYMPH % 19.7 % (19.3-53.1); MEAN PLATELET VOLUME 11.30 fl (9.4-12.4); MONO # 0.62 (0.24-0.82); MONO % 9.5 % (4.7-12.5); NEUT # 3.71 (1.56-6.13); NEUT % 56.6 % (34.0-71.1); RED CELL DISTRIBUTION WIDTH 14.6 % (11.6-14.4)
[2025-07-22 07:50] VITALS: BP 125/70; O2SAT 100
[2025-07-22 08:15] LABS: ALT/SGPT 31.0 U/L (12-78); AST/SGOT 29.0 U/L (15-37); BILIRUBIN TOTAL 0.34 mg/dL (0.3-1.2); BUN CREA RATIO 24.0 (7.0-25.0); CREATININE SERUM 0.66 mg/dL (0.70-1.30); GFR 117.98; GLOBULINA 3.5 G/DL (2.4-3.5); GLUCOSE FASTING 115.0 mg/dL (65-100); OSMOLALITY SERUM 283.0 MOSM/KG (275-295)
[2025-07-22] MEDS ORDERED: FUERA DE FORMULARIO 1 U FF IV SCH (09:00)
[2025-07-22] MEDS ORDERED: ACETAMINOPHEN 500 MG GEL..CAP PO PRN (10:45)
[2025-07-22 12:00] VITALS: BP 130/62; O2SAT 100
[2025-07-22 15:09] VITALS: BP 128/63; O2SAT 100
[2025-07-22 20:00] VITALS: BP 147/78; O2SAT 100
[2025-07-22] MEDS ORDERED: GABAPENTIN 300 MG CAPSULE PO SCH (21:00)
[2025-07-22 23:16] VITALS: BP 143/71; O2SAT 100
[2025-07-23 06:16] VITALS: BP 92/52; O2SAT 100
[2025-07-23 07:27] VITALS: BP 114/71; O2SAT 100
[2025-07-23 07:31] LABS: BASO % 0.9 % (0.1-1.2); EOS # 0.87 (0.04-0.54); EOS % 13.3 % (0.7-7.0); LYMPH # 1.03 (1.18-3.74); LYMPH % 15.7 % (19.3-53.1); MEAN PLATELET VOLUME 11.10 fl (9.4-12.4); MONO # 0.45 (0.24-0.82); MONO % 6.9 % (4.7-12.5); NEUT # 4.08 (1.56-6.13); NEUT % 62.3 % (34.0-71.1); RED CELL DISTRIBUTION WIDTH 14.5 % (11.6-14.4)
[2025-07-23 07:50] LABS: INR 1.0
[2025-07-23 08:10] LABS: ALT/SGPT 31.0 U/L (12-78); AST/SGOT 23.0 U/L (15-37); BILIRUBIN TOTAL 0.33 mg/dL (0.3-1.2); BILIRUBIN,CONJUGATED 0.14 mg/dL (0.0-0.2); BUN CREA RATIO 21.0 (7.0-25.0); CREATININE SERUM 0.67 mg/dL (0.70-1.30); GFR 115.95; GLOBULINA 3.5 G/DL (2.4-3.5); GLUCOSE FASTING 122.0 mg/dL (65-100); OSMOLALITY SERUM 277.0 MOSM/KG (275-295)
[2025-07-23 11:01] LABS: UREA CLEARANCE 62.5 ML/MIN
[2025-07-23 12:00] VITALS: BP 122/62; O2SAT 100
[2025-07-23 15:34] VITALS: BP 128/63; O2SAT 100
[2025-07-23 20:00] VITALS: BP 124/63; O2SAT 100
[2025-07-23 23:31] VITALS: BP 114/66; O2SAT 100
[2025-07-24] VITALS (8 sets, daily range): BP systolic 113–133; BP diastolic 64–78; O2SAT 99–100
[2025-07-24] MEDS ORDERED: FUERA DE FORMULARIO 1 U FF IV SCH (09:00)
[2025-07-24 10:03] LABS: BASO % 0.5 % (0.1-1.2); EOS # 0.51 (0.04-0.54); EOS % 7.7 % (0.7-7.0); LYMPH # 0.92 (1.18-3.74); LYMPH % 13.9 % (19.3-53.1); MEAN PLATELET VOLUME 10.60 fl (9.4-12.4); MONO # 0.44 (0.24-0.82); MONO % 6.6 % (4.7-12.5); NEUT # 4.67 (1.56-6.13); NEUT % 70.4 % (34.0-71.1); RED CELL DISTRIBUTION WIDTH 14.8 % (11.6-14.4)
[2025-07-24 10:46] LABS: ALT/SGPT 31.0 U/L (12-78); AST/SGOT 21.0 U/L (15-37); BILIRUBIN TOTAL 0.24 mg/dL (0.3-1.2); BUN CREA RATIO 22.0 (7.0-25.0); CREATININE SERUM 0.72 mg/dL (0.70-1.30); GFR 106.71; GLOBULINA 3.4 G/DL (2.4-3.5); GLUCOSE FASTING 137.0 mg/dL (65-100); OSMOLALITY SERUM 279.0 MOSM/KG (275-295)
[2025-07-25 03:58] VITALS: BP 109/62; O2SAT 99
[2025-07-25 07:25] VITALS: BP 111/59; O2SAT 99
[2025-07-25 15:22] VITALS: BP 115/64; O2SAT 100
[2025-07-26] VITALS (10 sets, daily range): BP systolic 114–123; BP diastolic 63–70; O2SAT 90–100
[2025-07-26 06:22] LABS: BASO % 0.9 % (0.1-1.2); EOS # 0.45 (0.04-0.54); EOS % 5.9 % (0.7-7.0); LYMPH # 1.41 (1.18-3.74); LYMPH % 18.5 % (19.3-53.1); MEAN PLATELET VOLUME 10.80 fl (9.4-12.4); MONO # 0.58 (0.24-0.82); MONO % 7.6 % (4.7-12.5); NEUT # 5.08 (1.56-6.13); NEUT % 66.4 % (34.0-71.1); RED CELL DISTRIBUTION WIDTH 15.2 % (11.6-14.4)
[2025-07-26 07:11] LABS: BUN CREA RATIO 20.0 (7.0-25.0); CREATININE SERUM 0.75 mg/dL (0.70-1.30); GFR 101.8; GLUCOSE FASTING 99.0 mg/dL (65-100); OSMOLALITY SERUM 282.0 MOSM/KG (275-295)
[2025-07-26] MEDS ORDERED: SOD FERRIC GLUC COMPLX/SUCROSE 62.5 MG/5 ML AMPUL IV SCH (09:00)
[2025-07-26 15:12] LABS: FACTOR VIII ACTIVITY 33 % (56-140); a PTT 29.8 sec (22.9-30.2)
[2025-07-27] VITALS (7 sets, daily range): BP systolic 109–132; BP diastolic 62–70; O2SAT 95–99
[2025-07-27 06:24] LABS: BASO % 1.2 % (0.1-1.2); EOS # 0.65 (0.04-0.54); EOS % 11.1 % (0.7-7.0); LYMPH # 1.60 (1.18-3.74); LYMPH % 27.4 % (19.3-53.1); MEAN PLATELET VOLUME 10.90 fl (9.4-12.4); MONO # 0.57 (0.24-0.82); MONO % 9.7 % (4.7-12.5); NEUT # 2.88 (1.56-6.13); NEUT % 49.2 % (34.0-71.1); RED CELL DISTRIBUTION WIDTH 15.5 % (11.6-14.4)
[2025-07-28] VITALS (8 sets, daily range): BP systolic 100–121; BP diastolic 61–68; O2SAT 89–100
[2025-07-28 07:31] LABS: BASO % 0.8 % (0.1-1.2); EOS # 0.46 (0.04-0.54); EOS % 7.4 % (0.7-7.0); LYMPH # 1.27 (1.18-3.74); LYMPH % 20.5 % (19.3-53.1); MEAN PLATELET VOLUME 10.70 fl (9.4-12.4); MONO # 0.61 (0.24-0.82); MONO % 9.8 % (4.7-12.5); NEUT # 3.77 (1.56-6.13); NEUT % 60.7 % (34.0-71.1); RED CELL DISTRIBUTION WIDTH 15.4 % (11.6-14.4)
[2025-07-29] VITALS (8 sets, daily range): BP systolic 106–135; BP diastolic 60–70; O2SAT 89–999
[2025-07-30] VITALS (7 sets, daily range): BP systolic 114–148; BP diastolic 67–70; O2SAT 90–100
== END 2025-07-30 17:49 | disposition home or self-care (01) | DRG 813 ==
LOC: ER 05:01 → ICU 07:55 → SURH 07:55 → SEC-K 07:55 → SURH 08:22 → ICU 07-09 22:38 → SURH 07-25 19:07
PROVIDERS: Colon & Rectal Surgery; General Practice; Internal Medicine; Surgery; ADMIT Surgery; ATTEND Surgery
PROC: 30243N1 Transfusion of Nonautologous Red Blood Cells into Central Vein, Percutaneous Approach (ICD-10-PCS; 2025-07-04)
PROC: 0DJD8ZZ Inspection of Lower Intestinal Tract, Via Natural or Artificial Opening Endoscopic (ICD-10-PCS; principal; 2025-07-04 20:30)
PROC: 0W3P8ZZ Control Bleeding in Gastrointestinal Tract, Via Natural or Artificial Opening Endoscopic (ICD-10-PCS; 2025-07-10)
PROC: 02HV33Z Insertion of Infusion Device into Superior Vena Cava, Percutaneous Approach (ICD-10-PCS; 2025-07-10)
PROC: 30243R1 Transfusion of Nonautologous Platelets into Central Vein, Percutaneous Approach (ICD-10-PCS; 2025-07-10)
PROC: 2Y43X5Z Packing of Anorectal Region using Packing Material (ICD-10-PCS; 2025-07-13)
PROC: 30243M1 Transfusion of Nonautologous Plasma Cryoprecipitate into Central Vein, Percutaneous Approach (ICD-10-PCS; 2025-07-14)
PROC: 30243K1 Transfusion of Nonautologous Frozen Plasma into Central Vein, Percutaneous Approach (ICD-10-PCS; 2025-07-14)
PROC: 302 Administration, Circulatory, Transfusion (ICD-10-PCS; 2025-07-14)
PROC: BW21YZZ Computerized Tomography (CT Scan) of Abdomen and Pelvis using Other Contrast (ICD-10-PCS; 2025-07-15)
PROC: XW0H886 Introduction of Mineral-based Topical Hemostatic Agent into Lower GI, Via Natural or Artificial Opening Endoscopic, New Technology Group 6 (ICD-10-PCS; 2025-07-20)
PROC: 0W3P8ZZ Control Bleeding in Gastrointestinal Tract, Via Natural or Artificial Opening Endoscopic (ICD-10-PCS; 2025-07-20)
PROC: 3E0H8GC Introduction of Other Therapeutic Substance into Lower GI, Via Natural or Artificial Opening Endoscopic (ICD-10-PCS; 2025-07-20)
PROC: 4A12X4Z Monitoring of Cardiac Electrical Activity, External Approach (ICD-10-PCS; 2025-07-26)
DX: D66 Hereditary factor VIII deficiency (principal); R57.1 Hypovolemic shock; D62 Acute posthemorrhagic anemia; K62.5 Hemorrhage of anus and rectum; D65 Disseminated intravascular coagulation [defibrination syndrome]; K63.9 Disease of intestine, unspecified
CPT/HCPCS: 45990; 45382; 74177; 36573; 36430 ×4; 93228; J7186; J7189; J7198